=== PATIENT | male | born 1965 | race American Indian/Alaskan Native ===

== ENCOUNTER 2017-06-19 11:46 | Outpatient (CLI) | payer OTHER | END 2017-06-19 11:47 | disposition home or self-care (01) | LOC: PF 11:46 | PROVIDERS: ATTEND Internal Medicine | DX: J45.909 Unspecified asthma, uncomplicated (principal); I10 Essential (primary) hypertension; J42 Unspecified chronic bronchitis; F60.3 Borderline personality disorder; N28.9 Disorder of kidney and ureter, unspecified | CPT/HCPCS: 94060 ==